=== PATIENT | male | born 1995 ===

== ENCOUNTER → 2017-08-12 | Outpatient (REF) | payer SELFPAY ==
[2017-08-12 19:37] LABS: ANION GAP 9 MEQ/L (8-16); BLOOD UREA NITROGEN 18 MG/DL (7-18); CARBON DIOXIDE LEVEL 27 MEQ/L (21-32); CHLORIDE LEVEL 107 MEQ/L (98-107); CREATININE FOR GFR 0.92 MG/DL (0.70-1.30); GLUCOSE, FASTING 90 MG/DL (70-100); POTASSIUM SERUM 4.2 MEQ/L (3.5-5.1); SODIUM LEVEL 143 MEQ/L (136-145)
[2017-08-13 10:24] LABS: HEPATITIS B SURFACE ANTIGEN NEGATIVE (NEGATIVE)
[2017-08-13 10:39] LABS: HEPATITIS B SURFACE ANTIBODY NEGATIVE (POSITIVE)
[2017-08-13 10:42] LABS: HEPATITIS C VIRUS ABY INDEX < 0.0 INDEX (<0.8)
[2017-08-13 10:42] LABS: HEPATITIS B CORE ANTIBODY IGM NEGATIVE (NEGATIVE)
[2017-08-13 10:44] LABS: HEPATITIS A ANTIBODY IGM NEGATIVE (NEGATIVE)
[2017-08-13 12:23] LABS: HIV 1&2 SCREEN CENTAUR NEGATIVE (NEGATIVE)
[2017-08-18 00:08] LABS: CHLAMYDIA RECTAL APTIMA Negative (Negative); GC RECTAL APTIMA Negative (Negative)
[2017-08-18 08:06] LABS: CHLAMYDIA PHARYNGEAL APTIMA Negative (Negative); GC PHARYNGEAL APTIMA Negative (Negative); HEPATITIS B CORE ANTIBODY IGG Negative (Negative)
[2017-08-18 08:06] LABS: HEPATITIS A IgG TOTAL Positive (Negative)
== END ==
LOC: M LAB REF 18:23
DX: Z11.3 Encounter for screening for infections with a predominantly sexual mode of transmission (principal)
CPT/HCPCS: 86706